=== PATIENT | female | born 1960 | race Caucasian/White ===

== ENCOUNTER → 2020-05-08 | Outpatient (CLI) | payer MEDICARE, OTHER ==
[~2020-05-08] MED LIST: BUSP5POW MC; CLON0.25 PO; DICY10CA3 PO; DULO20CA50 PO; GABA25PO15 MC; NIFE30TA2 PO; OMEP5POW MC; ZONI25CA26 PO
--- NOTE | 2020-05-08 12:23 | RAD ---
EXAM: Abdomen sonogram. HISTORY: Hepatomegaly. TECHNIQUE: Sonographic imaging of the abdomen was performed. COMPARISON: None. FINDINGS: The liver is normal in size. No hepatic lesion is seen. The gallbladder is surgically absent. There is a 1.2 cm simple right renal cyst. Follow-up is not recommended for simple renal cysts. There is no hydronephrosis. The pancreas is unremarkable. The inferior cava is patent. IMPRESSION: 1. Sonographically unremarkable liver. 2. Small simple right renal cyst. Electronically signed by: Tamiko Concepcion MD (05/08/2020 12:21 PM) [id number]
[2020-05-08 14:03] LABS: ALBUMIN 3.7 g/dL (3.4-5.0); CALCIUM 9.3 mg/dL (8.5-10.1); CREATININE 1.3 mg/dL (0.6-1.0); GFR 41.5; POTASSIUM 3.8 mmol/L (3.5-5.1); TOTAL BILIRUBIN 0.4 mg/dL (0.2-1.0); TOTAL PROTEIN 7.5 g/dL (6.4-8.2)
[2020-05-08 14:05] LABS: BASO # 0.1 x10^3/uL (0.0-0.2); BASO % 2 % (0-3); EOS # 0.4 x10^3/uL (0.0-0.7); EOS % 8 % (0-3); HEMATOCRIT 46.8 % (36.0-47.0); HEMOGLOBIN 15.6 g/dL (12.0-15.5); LYMPH # 1.2 x10^3/uL (1.0-4.8); LYMPH % 23 % (24-48); MEAN CORPUSCULAR HEMOGLOBIN 33 pg (25-35); MEAN CORPUSCULAR HGB CONC 33 g/dL (31-37); MEAN CORPUSCULAR VOLUME 98 fL (79-100); MONO # 0.3 x10^3/uL (0.0-1.1); MONO % 6 % (0-9); NEUT # 3.2 x10^3uL (1.8-7.7); NEUT % 61 % (31-73); PLATELET COUNT 279 x10^3/uL (140-400); RED BLOOD COUNT 4.79 x10^6/uL (3.50-5.40); RED CELL DISTRIBUTION WIDTH 14.2 % (11.5-14.5); WHITE BLOOD COUNT 5.3 x10^3/uL (4.0-11.0)
== END ==
LOC: LAB 11:23
PROVIDERS: ATTEND Internal Medicine Medical Oncology
DX: E66.9 Obesity, unspecified (principal); N28.1 Cyst of kidney, acquired; D69.6 Thrombocytopenia, unspecified
CPT/HCPCS: 36415; 76705; 80053; 82105; 82728; 85025

== ENCOUNTER 2020-09-17 11:10 | Emergency (ER) | payer MEDICARE, OTHER ==
[~2020-09-17] VITALS: Ht 162.6 cm; Wt 116.3 kg
[2020-09-17] MEDS: LIDOCAINE 2%/EPI 1:100,000 20 ML VIAL. IJ ONE (11:45)
[2020-09-17] MEDS: NEOMY/BACITR/POLYMYXIN OINT PACKET. TP ONE (11:45)
--- NOTE | 2020-09-17 11:50 | PHYS DOC ---
Past History Past Medical History: A-Fib, Arthritis, Other Additional Past Medical Histor: Parcan. Past Surgical History: Cholecystectomy, Gastric Bypass, Knee Replacement, Other Additional Past Surgical Histo: Brain stimulater, ankle Smoking: Non-smoker Alcohol Use: None Drug Use: None General Adult EDM: Chief Complaint: MECHANICAL FALL HPI: HPI: Patient is a 60 year old female who presents with head laceration due to mechanical fall. She reports tripping over her dog and hitting the left side of her head. She did not lose consciousness and has no history of previous concussions. Describes pain as dull and localized to left side of head. She has a history of a fib for which she takes Eliquis 5 mg 2x/day. She did not take any medications for pain management after her fall. She reports that she has received a tetanus shot within the past 5 years. No aggravating or alleviating symptoms. Reports pain as 6/10. She reports no other symptoms other than head pain--she did not injury any extremities or other body parts due to fall. Expressed concern that her deep stimulation device for Parkinsons may have been damaged in her fall. Has no other complaints or concerns at this time. Review of Systems: Review of Systems: Constitutional: Denies fever or chills Eyes: Denies redness or eye pain HENT: Denies nasal congestion or sore throat Respiratory: Denies cough or shortness of breath Cardiovascular: Denies chest pain or palpitations GI: Denies abdominal pain, nausea, or vomiting : Denies dysuria or hematuria Musculoskeletal: Denies back pain or joint pain Integument: Denies rash or skin lesions Neurologic: Reports headache. Denies focal weakness or sensory changes Complete systems were reviewed and found to be within normal limits, except as documented in this note. Current Medications: Current Meds: Current Medications Medications (Trade) Dose Ordered Sig/Rob Start Time Stop Time Status Last Admin Dose Admin Neomycin/ Polymyxin/ Bacitracin (Triple Antibiotic Ointment) 1 pkt 1X ONCE 09/17/20 11:45 09/17/20 11:46 Allergies: Allergies: Allergies Coded Allergies Type Severity Reaction Last Updated Verified Sulfa (Sulfonamide Antibiotics) Allergy Unknown 10/03/13 Yes enoxaparin Allergy Unknown 09/17/20 Yes Physical Exam: PE: Constitutional: Well developed, well nourished, no acute distress, non-toxic appearance HENT: Normocephalic. 2 cm laceration noted on left scalp/ Eyes: PERRL, EOMI, conjunctiva normal, no discharge Neck: Normal range of motion, no tenderness, supple Lungs & Thorax: No respiratory distress, equal chest rise and fall Abdomen: Soft, no tenderness Skin: Warm, dry, no rash. 3 cm laceration noted on left side of head Back: No tenderness, no CVA tenderness Extremities: No tenderness, ROM intact, no edema Neurologic: Alert and oriented X 3, normal motor function, normal sensory function, no focal deficits noted Psychologic: Affect normal, judgment normal Current Patient Data: Vital Signs: Vital Signs Date Time Temp Pulse Resp B/P (MAP) Pulse Ox O2 Delivery O2 Flow Rate FiO2 09/17/20 11:13 97.6 69 16 144/67 (92) 96 Room Air EKG: EKG: [] Radiology/Procedures: Radiology/Procedures: PROCEDURE: CT HEAD AND CERVICAL SPINE WO EXAM: Head and cervical spine CT without contrast. HISTORY: Fall. TECHNIQUE: Computed tomographic images of the head and cervical spine were obtained without contrast. *One or more of the following individualized dose reduction techniques were utilized for this examination: 1. Automated exposure control. 2. Adjustment of the mA and/or kV according to patient size. 3. Use of iterative reconstruction technique. COMPARISON: None. FINDINGS: Head: There is no intracranial hemorrhage. There is no mass effect or midline shift. There is no hydrocephalus. There is cerebral volume loss. There are areas of decreased attenuation within the cerebral white matter, likely due to chronic small vessel disease. There are bilateral deep thalamic stimulator leads in expected position. The orbits and visualized paranasal sinuses and mastoid air cells are unremarkable. No suspicious calvarial lesion is seen. Cervical spine: There is mild cervical kyphosis. There is minimal anterolisthesis of C4 on C5 and C7 on T1, T1 on T2 and T2 on T3. There is degenerative endplate remodeling and disc space narrowing at C5-C6. There is multilevel facet arthropathy. There is no fracture or suspicious osseous lesion. There is no significant foraminal or central canal stenosis. IMPRESSION: 1. No acute intracranial finding or evidence of acute cervical spine trauma. 2. Bilateral deep thalamic stimulator leads in expected position. 3. Bilateral cerebral white matter changes, likely due to chronic small vessel disease. 4. Degenerative change involving the cervical spine, primarily at C5-C6. Electronically signed by: Tamiko Concepcion MD (09/17/2020 11:52 AM) [id number] DICTATED AND SIGNED BY: TAMIKO CONCEPCION MD DATE: 09/17/20 1149 Heart Score: C/O Chest Pain: N/A Course & Med Decision Making: Course & Med Decision Making Pertinent Labs and Imaging studies reviewed. (See chart for details) Patient was offered medication for pain management and refused. Due to patient's age, history, and anticoagulation, CT imaging was performed on the head and neck. Results were non-concerning for hematoma, internal hemorrhage, fracture, or C-spine trauma. Laceration was closed with dylan and treated with empirical antibiotic cream. Patient was instructed to follow-up with PCP or urgent care for removal of dylan in 7-10 days. She was neurologically intact and showed no other emergent signs following her fall. Patient was hemodynamically stable upon discharge. Patient stable for discharge with outpatient follow-up with PCP. Discussed findings and plan with patient, who acknowledges understanding and agreement. Cheri Disclaimer: Cheri Disclaimer: This electronic medical record was generated, in whole or in part, using a voice recognition dictation system. Laceration/Wound Repair Laceration/Wound Repair : Wound Location: head Wound's Depth, Shape: superficial Wound Length (cm): 3 Wound Explored: no foreign body removed Anesthesia: Lidocaine w/ Epi (2%) Volume Anesthetic (ccs): 2 Wound Debrided: minimal Progress Verbal consent obtained. Time out performed. Hand hygiene utilized. Wound cleaned with ChloraPrep. Anesthesia obtained via a 25-gauge hypodermic needle with 2 mL's of lidocaine 2% with epinephrine. Wound well approximated with 5 dylan. Patient tolerated procedure well and without difficulty. Empiric antibi otic ointment applied. Departure Departure: Impression: Primary Impression: Laceration of scalp Qualified Codes: S01.01XA - Laceration without foreign body of scalp, initial encounter Disposition: 01 DC HOME SELF CARE/HOMELESS Condition: STABLE Referrals: BOB VALERO MD (PCP) Patient Instructions: Laceration Care, Adult, [id number] Additional Instructions: Do not soak your wound. You may shower. Clean wound daily with soap and water. Use over the counter antibiotic ointment with each dressing change. Dylan need to be removed in 7-10 days. Present to your family doctor or local urgent care for removal. You may also present to the ED but it will be an additional visit/charge. Use over the counter Tylenol for pain or discomfort. DORA GREWAL DO Sep 17, 2020 11:50
--- NOTE | 2020-09-17 11:55 | RAD ---
EXAM: Head and cervical spine CT without contrast. HISTORY: Fall. TECHNIQUE: Computed tomographic images of the head and cervical spine were obtained without contrast. *One or more of the following individualized dose reduction techniques were utilized for this examina tion: 1. Automated exposure control. 2. Adjustment of the mA and/or kV according to patient size. 3. Use of iterative reconstruction technique. COMPARISON: None. FINDINGS: Head: There is no intracranial hemorrhage. There is no mass effect or midline shift. There is no hydr ocephalus. There is cerebral volume loss. There are areas of decreased attenuation within the cerebra l white matter, likely due to chronic small vessel disease. There are bilateral deep thalamic stimula tor leads in expected position. The orbits and visualized paranasal sinuses and mastoid air cells are unremarkable. No suspicious calvarial lesion is seen. Cervical spine: There is mild cervical kyphosis. There is minimal anterolisthesis of C4 on C5 and C7 on T1, T1 on T2 and T2 on T3. There is degenerative endplate remodeling and disc space narrowing at C 5-C6. There is multilevel facet arthropathy. There is no fracture or suspicious osseous lesion. There is no significant foraminal or central canal stenosis. IMPRESSION: 1. No acute intracranial finding or evidence of acute cervical spine trauma. 2. Bilateral deep thalamic stimulator leads in expected position. 3. Bilateral cerebral white matter changes, likely due to chronic small vessel disease. 4. Degenerative change involving the cervical spine, primarily at C5-C6. Electronically signed by: Tamiko Concepcion MD (09/17/2020 11:52 AM) [id number]
[2020-09-17 12:37] VITALS: BP 119/63
== END 2020-09-17 12:36 | disposition home or self-care (01) ==
LOC: ER 11:10
DX: S01.01XA Laceration without foreign body of scalp, initial encounter (principal); I48.91 Unspecified atrial fibrillation; M19.90 Unspecified osteoarthritis, unspecified site; Z98.84 Bariatric surgery status; Z88.2 Allergy status to sulfonamides; Z88.8 Allergy status to other drugs, medicaments and biological substances; W01.0XXA Fall on same level from slipping, tripping and stumbling without subsequent striking against object, initial encounter; Y93.89 Activity, other specified; Y92.89 Other specified places as the place of occurrence of the external cause; Y99.8 Other external cause status
CPT/HCPCS: 12002; 70450; 72125; 99285-25

== ENCOUNTER → 2021-03-29 | Outpatient (CLI) | payer MEDICARE, OTHER ==
--- NOTE | 2021-03-29 16:55 | RAD ---
3 views the right foot without comparison for first digit pain. FINDINGS: There is no fracture, dislocation, or acute osseous abnormality identified. There is a well -corticated ovoid bone fragment along with lateral aspect of the first proximal phalanx at its base, which is likely a small sesamoid, or less likely an old healed avulsion fragment. No significant dege nerative changes. Large calcaneal bone spur. No ankle effusion. IMPRESSION: 1. No acute osseous abnormality. Electronically signed by: Kalyan Gudino MD (03/29/2021 4:53 PM) [id number]
== END ==
LOC: RAD 13:24
PROVIDERS: ATTEND Podiatrist Foot Surgery
DX: M77.31 Calcaneal spur, right foot (principal); M19.071 Primary osteoarthritis, right ankle and foot
CPT/HCPCS: 73630